=== PATIENT | female | born 1985 | race Caucasian/White ===

== ENCOUNTER → 2025-01-15 | Outpatient (CLI) | payer BC ==
[2025-01-23 00:18] LABS: HPV HIGH RISK BY TMA Not Detected; HPV SOURCE Cervical
== END ==
LOC: LAB SHORT 14:14 → LAB 14:14
PROVIDERS: Advanced Practice Midwife
DX: Z01.419 Encounter for gynecological examination (general) (routine) without abnormal findings (principal)
CPT/HCPCS: 87624; G0123

== ENCOUNTER 2025-06-11 06:16 | Day surgery (SDC) | payer BC ==
[~2025-06-11] VITALS: Ht 160 cm; Wt 53.7 kg
[2025-06-11] MEDS ORDERED: Bupivacaine 0.5% W/EPI 1:200000 SDV 30 ML Vial ONE (06:50)
[2025-06-11] MEDS ORDERED: FentaNYL Citrate 50 MCG/ML 2 ML Injection ONE (07:22)
[2025-06-11] MEDS ORDERED: Ketorolac Tromethamine 30mg Vial ONE (07:23)
[2025-06-11] MEDS ORDERED: Dexamethasone Sod Phos 10 MG/ML 1ML VIAL ONE (07:23)
[2025-06-11] MEDS ORDERED: Ondansetron HCl 2 MG / ML 2ML Vial ONE (07:23)
[2025-06-11] MEDS ORDERED: Rocuronium Bromide 10 MG/ML 5ML Injection IV ONE (07:23)
--- NOTE | 2025-06-11 07:49 | NUR ---
06/11/25 0749 Syl Zelaya ABDOMINAL AREA PREPPED BY AMM WITH CHLORAPREP
[2025-06-11] MEDS ORDERED: Sugammadex Sodium 200 MG/2ML SDV (100 MG/ML) ONE (08:07)
--- NOTE | 2025-06-11 08:32 | NUR ---
06/11/25 0832 Georgina Bustamante REPORT RECEIVED FROM TUNG AND RN. PT ASLEEP UPON ARRIVAL. SKIN WARM, MOIST, PINK. VSS. OA IN PLACE AT THIS TIME. ABDOMINAL INCISIONS CLEAN, DRY AND INTACT. NO BLEEDING NOTED ON PERIPAD.
--- NOTE | 2025-06-11 09:16 | NUR ---
06/11/25 0916 Georgina Bustamante MA UPDATED
== END 2025-06-11 10:39 | disposition home or self-care (01) ==
LOC: ORSCSDS 06:16
PROVIDERS: Obstetrics & Gynecology
PROC: 0UB74ZZ Excision of Bilateral Fallopian Tubes, Percutaneous Endoscopic Approach (ICD-10-PCS; principal; 2025-06-11 07:30)
DX: Z30.2 Encounter for sterilization (principal)
CPT/HCPCS: 88302; A9270; J1100; J1885; J2405; J2704; J3010